=== PATIENT | female | born 1965 | race Caucasian/White ===

== ENCOUNTER 2016-05-08 06:47 | Emergency (ER) | payer MEDICAID ==
[~2016-05-08] VITALS: Ht 162.6 cm; Wt 90.7 kg
[2016-05-08 06:50] VITALS: BP 144/92
--- NOTE | 2016-05-08 06:55 | NUR ---
AMBULATED TO ER BED 5
--- NOTE | 2016-05-08 06:57 | NUR ---
Patient being evaluated by physician at bedside.
[2016-05-08] MEDS ORDERED: [UNRECOGNIZED DRUG - OTHER] OP ONE (07:00)
[2016-05-08] MEDS ORDERED: IBUPROFEN 800 MG TAB PO ONE (07:00)
--- NOTE | 2016-05-08 07:15 | NUR ---
51/F presents to ED for evaluation of right eye pain since this morning 0100. Pt states "It started with my right eye and now my left eye is starting to hurt." Swelling to right eye lid, sclera appears pink, no tearing noted. Denies changes in vision. Patient is AOX4, ambulatory with steady gait. VSS.
[2016-05-08 07:39] VITALS: BP 144/92
--- NOTE | 2016-05-08 07:40 | NUR ---
Patient discharged with v/s stable. Written and verbal after care instructions given and explained. Patient alert, oriented and verbalized understanding of instructions. Ambulatory with steady gait. All questions addressed prior to discharge. ID band removed. Patient advised to follow up with PMD. Rx of motrin and eye drops given. Patient educated on indication of medication including possible reaction and side effects. Opportunity to ask questions provided and answered.
--- NOTE | 2016-05-08 07:40 | NUR ---
Chart checked and completed. The patient's care was reviewed and supervised by Leroy Pena RN.
== END 2016-05-08 07:40 | disposition home or self-care (01) ==
LOC: MED 06:47
DX: H10.9 Unspecified conjunctivitis (principal); J20.8 Acute bronchitis due to other specified organisms; Z88.0 Allergy status to penicillin

== ENCOUNTER 2018-09-22 06:45 | Emergency (ER) | payer SELFPAY ==
[~2018-09-22] VITALS: Ht 162.6 cm; Wt 90.7 kg
--- NOTE | 2018-09-22 06:55 | NUR ---
PT AMBULATED TO BED 11.
[2018-09-22 06:56] VITALS: BP 122/83
--- NOTE | 2018-09-22 07:01 | NUR ---
53 YO F BIB SELF PRESENTS TO ED C/O HIVES THAT STARTED LAST NIGHT. PT HAS ONE HIVE TO BOTH RIGHT AND LEFT UPPER EXTREMETIES. PT ALSO HAS SWELLING TO LEFT EYE. LEFT EYELID APPEARS PUFFY, RED. PT DENIES SOB, DIFFICULTY BREATHING OR SWALLOWING. PT STATES SHE HAS SEASONAL ALLERGIES AND ALLERGY TO PCN. PT STATES SHE TOOK BENADRYL AT 2400 AND IT WAS INEFFECTIVE. SKIN PINK, WARM, DRY. BREATHING EVEN, UNLABORED. VSS. PMH-- GERD
--- NOTE | 2018-09-22 07:06 | NUR ---
REPORT GIVEN TO NGUYEN STOUT.
--- NOTE | 2018-09-22 07:07 | NUR ---
PT AAO X4. FULL CLEAR SPEECH. PERRLA, BRISK 3 MM. L EYE SWOLLEN, BUMP WITH REDNESS TO DEVONTE ARMS. PT DENIES SOB, FEVER, BLURRED VISION. PT HAS STEADY GAIT.
--- NOTE | 2018-09-22 07:26 | NUR ---
DR HOBBS AT BEDSIDE FOR PT EVALUATION
[2018-09-22] MEDS ORDERED: PROMETHAZINE 25 MG/ML VIAL IM ONE (07:30)
[2018-09-22] MEDS ORDERED: FAMOTIDINE 20 MG TAB PO ONE (07:30)
[2018-09-22] MEDS ORDERED: DEXAMETHASONE 10 MG/ML VIAL IM ONE (07:30)
[2018-09-22] MEDS ORDERED: hydrOXYzine HCL 25 MG TAB PO ONE (07:30)
[2018-09-22 07:58] VITALS: BP 118/76
--- NOTE | 2018-09-22 07:58 | NUR ---
Patient discharged with v/s stable. Written and verbal after care instructions given and explained. Patient alert, oriented and verbalized understanding of instructions. Ambulatory with steady gait. All questions addressed prior to discharge. ID band removed. Patient advised to follow up with PMD. Rx of prednisone, atarax given. Patient educated on indication of medication including possible reaction and side effects. Opportunity to ask questions provided and answered.
== END 2018-09-22 07:58 | disposition home or self-care (01) ==
LOC: MED 06:45
DX: T63.481A Toxic effect of venom of other arthropod, accidental (unintentional), initial encounter (principal); K21.9 Gastro-esophageal reflux disease without esophagitis; Z88.0 Allergy status to penicillin; Y92.89 Other specified places as the place of occurrence of the external cause
CPT/HCPCS: 96372; 99283; J1100; J2550

== ENCOUNTER 2019-04-15 05:30 | Emergency (ER) | payer SELFPAY ==
[~2019-04-15] VITALS: Ht 165.1 cm; Wt 90.7 kg
[2019-04-15 05:30] VITALS: BP 141/87
--- NOTE | 2019-04-15 05:30 | NUR ---
TO BED #07 AMBULATORY
--- NOTE | 2019-04-15 05:50 | NUR ---
PT ASSESSMENT COMPLETE. PT LYING SUPINE IN BED. BEDRAIL X1 UP. WILL CONTINUE TO MONITOR.
--- NOTE | 2019-04-15 07:07 | NUR ---
BEDSIDE REPORT GIVEN TO NGUYEN GARCÍA. TRANSFER OF CARE AT THIS TIME.
--- NOTE | 2019-04-15 07:16 | NUR ---
RECEIVED REPORT FROM DEEPAK KIRK
--- NOTE | 2019-04-15 07:16 | NUR ---
Dr. Caldwell is evaluating the patient at bedside.
[2019-04-15 07:56] VITALS: BP 141/87
--- NOTE | 2019-04-15 07:56 | NUR ---
Patient discharged with v/s stable. Written and verbal after care instructions given and explained. Patient alert, oriented and verbalized understanding of instructions. Ambulatory with steady gait. All questions addressed prior to discharge. ID band removed. Patient advised to follow up with PMD. Rx of Prednison 20mg and Motrin 800mg given. Patient educated on indication of medication including possible reaction and side effects. Opportunity to ask questions provided and answered.
== END 2019-04-15 07:56 | disposition home or self-care (01) ==
LOC: MED 05:30
DX: R05 Cough (principal); R07.89 Other chest pain; R06.02 Shortness of breath; K21.9 Gastro-esophageal reflux disease without esophagitis; Z98.890 Other specified postprocedural states; Z88.0 Allergy status to penicillin
CPT/HCPCS: 99283

== ENCOUNTER 2019-10-11 17:57 | Emergency (ER) | payer SELFPAY ==
[~2019-10-11] VITALS: Ht 162.6 cm; Wt 81.6 kg
[2019-10-11 18:15] VITALS: BP 111/80
--- NOTE | 2019-10-11 18:28 | NUR ---
C/O FEVER, COUGH,HEADACHE, BODY ACHE X 3 DAYS. PT HAS COVID TESTED POSITIVE 10/09/19. TEMP 100.7 & TOOK ACETAMINOPHEN 4 HOURS AGO. TEMP 99, P 89, R 20, O2SAT 97%, BP 11/80 AT THIS TIME. MED HX:HITAL HERNIA & SURGERY
[2019-10-11 18:53] VITALS: BP 111/80
--- NOTE | 2019-10-11 18:53 | NUR ---
Patient discharged with v/s stable. Written and verbal after care instructions given and explained. Patient alert, oriented and verbalized understanding of instructions. Ambulatory with steady gait. All questions addressed prior to discharge. ID band removed. Patient advised to follow up with PMD. Rx of AZITHROMYCIN given. Patient educated on indication of medication including possible reaction and side effects. Opportunity to ask questions provided and answered.
== END 2019-10-11 18:53 | disposition home or self-care (01) ==
LOC: MED 17:57
DX: U07.1 COVID-19 (principal)
CPT/HCPCS: 99283

== ENCOUNTER 2019-10-23 09:04 | Emergency (ER) | payer SELFPAY ==
[~2019-10-23] VITALS: Ht 162.6 cm; Wt 90.7 kg
[2019-10-23 09:23] VITALS: BP 119/75
--- NOTE | 2019-10-23 09:28 | NUR ---
C/O SOB X 2 DAYS, COUGH X 2.5 WEEKS. DENIES FEVER.COVID TESTED + 10/08/[address]. TEMP 97.7, P 67, R20, O2SAT 97%, BP 119/75 AT THIS TIME. SEEN HERE 10/11/19 MED HX: HITAL HERNIA
[2019-10-23 11:11] LABS: BASOPHILS # (AUTO) 0.1 K/uL (0.00-0.22); BASOPHILS % (AUTO) 1.3 % (0.0-2.0); EOSINOPHILS # (AUTO) 0.4 K/uL (0-0.4); EOSINOPHILS % (AUTO) 6.6 % (0.0-4.0); HEMATOCRIT 38.4 % (36-48); HEMOGLOBIN 11.9 g/dL (12.0-16.0); LYMPHOCYTES # (AUTO) 1.3 K/uL (2.5-16.5); LYMPHOCYTES % (AUTO) 22.3 % (20.5-51.1); MEAN CORPUSCULAR HEMOGLOBIN 24 pg (27-31); MEAN CORPUSCULAR HGB CONC 31 g/dL (33-37); MONOCYTES # (AUTO) 0.4 K/uL (0.8-1.0); MONOCYTES % (AUTO) 7.8 % (1.7-9.3); NEUTROPHILS # (AUTO) 3.5 K/uL (1.8-7.7); PLATELET COUNT (AUTO) 297 K/uL (140-450); RED BLOOD CELL COUNT(AUTO) 4.99 MIL/uL (4.20-5.40); RED CELL DISTRIBUTION WIDTH 17.6 % (11.6-13.7); WHITE BLOOD COUNT (AUTO) 5.7 K/uL (4.8-10.8)
[2019-10-23 11:34] LABS: ALBUMIN 3.8 g/dL (3.4-5.0); ANION GAP 15.9 (8-16); CARBON DIOXIDE 24.1 mmol/L (21-32); CREATININE 0.7 mg/dL (0.6-1.3); TOTAL BILIRUBIN 0.6 mg/dL (0.0-1.0)
--- NOTE | 2019-10-23 12:40 | NUR ---
COVID SWAB DONE.
--- NOTE | 2019-10-23 12:50 | NUR ---
Patient discharged with v/s stable. Written and verbal after care instructions given and explained. Patient verbalized understanding. Ambulatory with steady gait. All questions addressed prior to discharge. Advised to follow up with PMD.
[2019-10-23 12:51] VITALS: BP 119/75
== END 2019-10-23 12:50 | disposition home or self-care (01) ==
LOC: MED 09:04 → EEVIPCON 09:04 → MED 12:50
DX: R06.02 Shortness of breath (principal); K21.9 Gastro-esophageal reflux disease without esophagitis; Z88.0 Allergy status to penicillin
CPT/HCPCS: 71045; 80053; 83880; 84484; 85025; 93005; 99285; U0003

== ENCOUNTER 2019-11-25 11:29 | Emergency (ER) | payer OTHER, SELFPAY ==
[~2019-11-25] VITALS: Ht 165.1 cm; Wt 103.4 kg
[2019-11-25 11:36] VITALS: BP 143/93
--- NOTE | 2019-11-25 11:40 | NUR ---
Patient ambulated to bed 9. Placed in bed 9 for COVID precautions.
--- NOTE | 2019-11-25 11:48 | NUR ---
PT HAS 2 NEGATIVE COVID 19 POSITIVES SINCE ORIGIAN POSITIVE---COUGH SOB REMAINS AND ANTERIOR CHEST WALL PAIN
--- NOTE | 2019-11-25 12:25 | NUR ---
Dr. Aleman is evaluating the patient at bedside.
[2019-11-25 12:36] VITALS: BP 143/93
--- NOTE | 2019-11-25 12:37 | NUR ---
Patient discharged with v/s stable. Written and verbal after care instructions given and explained. Patient alert, oriented and verbalized understanding of instructions. Ambulatory with steady gait. All questions addressed prior to discharge. ID band removed. Patient advised to follow up with PMD. Rx of DEXAMETHASONE/HYDROXYCHLOROQUINE/AZITHROMYCIN given. Patient educated on indication of medication including possible reaction and side effects. Opportunity to ask questions provided and answered.
== END 2019-11-25 12:31 | disposition home or self-care (01) ==
LOC: MED 11:29
DX: J20.9 Acute bronchitis, unspecified (principal); K21.9 Gastro-esophageal reflux disease without esophagitis; Z88.0 Allergy status to penicillin; Z98.890 Other specified postprocedural states; Z20.828 Contact with and (suspected) exposure to other viral communicable diseases
CPT/HCPCS: 71045; 99283

== ENCOUNTER 2020-07-18 15:21 | Emergency (ER) | payer OTHER ==
[~2020-07-18] VITALS: Ht 165.1 cm; Wt 86.2 kg
--- NOTE | 2020-07-18 15:41 | NUR ---
PT TAKEN TO ER BED 11 FOR BEDSIDE TRIAGE.
[2020-07-18 15:45] VITALS: BP 134/80
--- NOTE | 2020-07-18 15:49 | NUR ---
55 Y/O FEMALE C/O CHEST CONGESTION/SORE-THROAT X2DAYS WITH +CLEAR PHLEGM, DRY NON-PRODUCTIVE COUGH. PT HAS HORSE VOICE. PT DENIES PAIN, DENIES N/V, DENIES FEVER/CHILLS. PT STATES THAT SHE FEELS SOB WHEN AMBULATING OR MOVING AROUND BUT NOT AT REST. CLEAR BREATH SOUNDS THROUGHOUT. PT STATES GRANDSON WAS SICK/COLD X1 WEEK AGO. PT HAS HAS BRONCHITIS AND S/S FEEL SIMILAR. PT TOOK GUAIFENESIN WITH RELIEF. PT IS A/O X4 WITH EVEN AND UNLABORED RESPIRATIONS. PT LAYING IN BED WITH BED IN LOWEST POSITION, BRAKES LOCKED, X1 SIDERAIL UP. PT IN GOWN. PMH: CHRONIC BRONCHITIS ALLERGIES: PCN
--- NOTE | 2020-07-18 16:21 | NUR ---
JABIER CHEW AT BEDSIDE
[2020-07-18] MEDS ORDERED: PRED20TA5 PO (16:42)
[2020-07-18] MEDS ORDERED: ALBU0.0912 IH (16:42)
[2020-07-18] MEDS ORDERED: CETI10SG1 PO (16:42)
[2020-07-18] MEDS ORDERED: PROM118S5 PO (16:42)
--- NOTE | 2020-07-18 16:47 | NUR ---
RAD AT BEDSIDE
[2020-07-18] MEDS ORDERED: fentaNYL citrate 0.05 MG/ML VIAL ONE (16:58)
[2020-07-18] MEDS ORDERED: PROM473S4 PO (17:14)
--- NOTE | 2020-07-18 17:25 | NUR ---
d/c with VSS. d/c education given. opportunity to ask questions given and answered. rx of promethazine, albuterol, prednisone and zyrtec given.
== END 2020-07-18 17:25 | disposition home or self-care (01) ==
LOC: MED 15:21
DX: J20.9 Acute bronchitis, unspecified (principal); K21.9 Gastro-esophageal reflux disease without esophagitis; Z88.0 Allergy status to penicillin; Z79.899 Other long term (current) drug therapy
CPT/HCPCS: 71045; 99283; J3010

== ENCOUNTER 2020-10-17 15:59 | Emergency (ER) | payer OTHER ==
[~2020-10-17] VITALS: Ht 162.6 cm; Wt 86.2 kg
[~2020-10-17 15:59] MED LIST: ALBU0.0912 IH; CETI10SG1 PO; PRED20TA5 PO; PROM473S4 PO
[2020-10-17 16:02] VITALS: BP 154/94
--- NOTE | 2020-10-17 16:42 | NUR ---
pt ambulated to bed 04.
--- NOTE | 2020-10-17 16:50 | NUR ---
55 y/o F BIB self from home with c/c cold-like symptoms x 4 days. Patient A&Ox4, reports wheezing, productive cough/congestion, headache 7/10, and vomiting x 3 episode since 0800 this morning. Patient states testing positive for Covid 10/2019 and states grandson is sick at home. Denies fever/chills, dizziness, SOB, chest pain, abdominal pain, blurry vision. Pt placed into a gown. SpO2 98% on room air. Lung sounds CTA; RR even/unlabored. Bed locked in lowest position, side rails x 1, call light in reach. PMH: asthma, bronchitis, hiatal hernia Allergies: PCN, seasonal allergies Meds: Robatussin
[2020-10-17] MEDS ORDERED: ALBUTEROL HFA MDI 90 MCG/ACTUATION 8 GM INH ONE (17:10)
--- NOTE | 2020-10-17 17:27 | NUR ---
MDI THERAPY AND RESPIRATORY DRUG GIVEN ORDERED EDUCATION PROVIDED ON THE PROPER USE OF MDI WITH CHAMBER
--- NOTE | 2020-10-17 17:30 | NUR ---
RT at bedside
[2020-10-17] MEDS ORDERED: PRED20TA5 PO (17:43)
[2020-10-17] MEDS ORDERED: ALBU0.0912 INH (17:43)
[2020-10-17] MEDS ORDERED: PROM473S5 PO (18:00)
[2020-10-17 18:14] VITALS: BP 154/94
--- NOTE | 2020-10-17 18:14 | NUR ---
Patient discharged with v/s stable. Written and verbal after care instructions given and explained. Patient alert, oriented and verbalized understanding of instructions. Ambulatory with steady gait. All questions addressed prior to discharge. ID band removed. Patient advised to follow up with PMD. Rx of Prednisone, Albuterol Sulfate, Promethazine Dm given. Patient educated on indication of medication including possible reaction and side effects. Opportunity to ask questions provided and answered.
== END 2020-10-17 18:14 | disposition home or self-care (01) ==
LOC: EEVIPCON 15:59 → MED 15:59
DX: J45.901 Unspecified asthma with (acute) exacerbation (principal); K21.9 Gastro-esophageal reflux disease without esophagitis; Z79.899 Other long term (current) drug therapy; Z88.0 Allergy status to penicillin
CPT/HCPCS: 71045; 94664; 99283

== ENCOUNTER 2020-11-20 17:59 | Emergency (ER) | payer OTHER ==
[~2020-11-20] VITALS: Ht 162.6 cm; Wt 110.2 kg
[~2020-11-20 17:59] MED LIST changes: +ALBU0.0912 INH; +PROM473S5 PO
[2020-11-20 18:06] VITALS: BP 142/98
[2020-11-20] MEDS ORDERED: IBUPROFEN 400 MG TAB PO ONE (18:15)
--- NOTE | 2020-11-20 18:16 | NUR ---
JABIER OWENS WITH PT FOR FURTHER ASSESSMENT.
--- NOTE | 2020-11-20 18:26 | NUR ---
PT AMBULATED TO ER BED 9.
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
--- NOTE | 2020-11-20 18:38 | NUR ---
PROGRAM ARRANGER AT PT BEDSIDE.
--- NOTE | 2020-11-20 18:54 | NUR ---
JABIER OWENS AT PT BEDSIDE FOR PROCEDURE.
[2020-11-20] MEDS ORDERED: LIDOCAINE MPF 1% 5 ML ONE (18:55)
[2020-11-20] MEDS ORDERED: LIDOCAINE MPF 1% 10 MG/ML VIAL INJ ONE (19:05)
[2020-11-20] MEDS ORDERED: BACI1PAC6 TP (19:13)
[2020-11-20] MEDS ORDERED: IBUP-1842 PO (19:13)
--- NOTE | 2020-11-20 19:18 | NUR ---
GAVE REPORT TO GNUYEN MEDINA. TRANSFER OF CARE AT THIS TIME.
--- NOTE | 2020-11-20 19:28 | NUR ---
Patient discharged with v/s stable. Written and verbal after care instructions given and explained. Patient alert, oriented and verbalized understanding of instructions. Ambulatory with steady gait. All questions addressed prior to discharge. ID band removed. Patient advised to follow up with PMD. Rx of BACITRACIC OINT AND MOTRIN given. Patient educated on indication of medication including possible reaction and side effects. Opportunity to ask questions provided and answered.
== END 2020-11-20 19:28 | disposition home or self-care (01) ==
LOC: MED 17:59
DX: S61.210A Laceration without foreign body of right index finger without damage to nail, initial encounter (principal); J45.909 Unspecified asthma, uncomplicated; K21.9 Gastro-esophageal reflux disease without esophagitis; Z88.0 Allergy status to penicillin; Z79.899 Other long term (current) drug therapy; Z98.890 Other specified postprocedural states; W22.8XXA Striking against or struck by other objects, initial encounter; Y93.89 Activity, other specified; Y92.89 Other specified places as the place of occurrence of the external cause; Y99.8 Other external cause status
CPT/HCPCS: 12002; 73140; 90471; 90715; 99283; J2001

== ENCOUNTER 2020-11-28 08:17 | Emergency (ER) | payer OTHER ==
[~2020-11-28] VITALS: Ht 162.6 cm; Wt 108.4 kg
[~2020-11-28 08:17] MED LIST changes: +BACI1PAC6 TP; +IBUP-1842 PO
[2020-11-28 08:20] VITALS: BP 139/80
--- NOTE | 2020-11-28 09:00 | NUR ---
Patient assessed, treated, and discharged with v/s stable. Written and verbal after care instructions about suture removal given and explained. Patient verbalized understanding. Ambulatory with steady gait. All questions addressed prior to discharge. Advised to follow up with PMD.
[2020-11-28 09:01] VITALS: BP 139/80
== END 2020-11-28 09:00 | disposition home or self-care (01) ==
LOC: MED 08:17
DX: Z48.02 Encounter for removal of sutures (principal); X58.XXXD Exposure to other specified factors, subsequent encounter; J45.909 Unspecified asthma, uncomplicated; K21.9 Gastro-esophageal reflux disease without esophagitis; Z98.890 Other specified postprocedural states; Z79.1 Long term (current) use of non-steroidal anti-inflammatories (NSAID); Z79.899 Other long term (current) drug therapy; Z79.2 Long term (current) use of antibiotics; Z79.51 Long term (current) use of inhaled steroids; Z88.0 Allergy status to penicillin
CPT/HCPCS: 99281

== ENCOUNTER 2021-03-10 14:51 | Emergency (ER) | payer OTHER ==
[~2021-03-10] VITALS: Ht 165.1 cm; Wt 90.7 kg
[2021-03-10 14:58] VITALS: BP 154/102
--- NOTE | 2021-03-10 15:04 | NUR ---
PT AMB TO BED 2.
--- NOTE | 2021-03-10 15:30 | NUR ---
55/F BIB SELF WITH C/O RIGHT UPPER BACK PAIN RADIATING TO RIGHT SHOULDER SINCE THIS MORNING. PATIENT DENIES INJURY OR TRAUMA, STATES PAIN IS A 10/10 SHARP/BURNING PAIN, REPORTS "IT FEELS LIKE SPASMS." PATIENT DENIES TAKING ANYTHING FOR PAIN PRIOR TO ARRIVAL TO ED, ALSO C/O SOB SINCE THIS MORNING, STATES IT WORSENS UPON AMBULATION, ALSO REPORTS INTERMITTENT EPISODES OF N/V/D. DENIES URINARY SYMPTOMS, CP, SOB, FEVER OR CHILLS.
--- NOTE | 2021-03-10 15:31 | NUR ---
DR GTZ AT BEDSIDE EVALUATING PT
[2021-03-10] MEDS ORDERED: KETOROLAC 60 MG/2 ML VIAL IM ONE (15:35)
[2021-03-10] MEDS ORDERED: CYCLOBENZAPRINE 10 MG TAB PO ONE (15:35)
[2021-03-10] MEDS ORDERED: CYCL-711 PO (15:37)
[2021-03-10] MEDS ORDERED: ACET-10509 PO (15:37)
[2021-03-10] MEDS ORDERED: IBUP-2213 PO (15:37)
[2021-03-10 16:43] VITALS: BP 127/92
--- NOTE | 2021-03-10 16:43 | NUR ---
Patient discharged with v/s stable. Written and verbal after care instructions ABOUT MUSCLE STRAIN given and explained. Patient alert, oriented and verbalized understanding of instructions. Ambulatory with steady gait. All questions addressed prior to discharge. ID band removed. Patient advised to follow up with PMD. Rx of FLEXERIL, IBUPROFEN 600MG, AND TYLENOL EXTRA STRENGTH given. Patient educated on indication of medication including possible reaction and side effects. Opportunity to ask questions provided and answered.
--- NOTE | 2021-03-10 16:44 | NUR ---
The patient's care was reviewed and supervised by Jacklyn Vizcarra RN.
== END 2021-03-10 16:43 | disposition home or self-care (01) ==
LOC: MED 14:51
DX: S39.012A Strain of muscle, fascia and tendon of lower back, initial encounter (principal); S29.012A Strain of muscle and tendon of back wall of thorax, initial encounter; M62.830 Muscle spasm of back; J45.909 Unspecified asthma, uncomplicated; K21.9 Gastro-esophageal reflux disease without esophagitis; Z79.899 Other long term (current) drug therapy; Z79.1 Long term (current) use of non-steroidal anti-inflammatories (NSAID); Z79.2 Long term (current) use of antibiotics; Z79.51 Long term (current) use of inhaled steroids; Z88.0 Allergy status to penicillin; X58.XXXA Exposure to other specified factors, initial encounter; Y92.89 Other specified places as the place of occurrence of the external cause; Y93.89 Activity, other specified; Y99.8 Other external cause status
CPT/HCPCS: 81002; 81025; 96372; 99283; J1885

== ENCOUNTER 2021-06-23 16:15 | Emergency (ER) | payer OTHER ==
[~2021-06-23] VITALS: Ht 165.1 cm; Wt 108.1 kg
[~2021-06-23 16:15] MED LIST changes: +ACET-10509 PO; +CYCL-711 PO; +IBUP-2213 PO
[2021-06-23 16:30] VITALS: BP_SYST 80
--- NOTE | 2021-06-23 16:41 | NUR ---
PT AMB TO BED 9.
--- NOTE | 2021-06-23 16:50 | NUR ---
PATIENT PRESENTS TO ED WITH C/O N/V/D, MID ABDOMINAL PAIN, CABELLO, PRODUCTIVE COUGH, CHILLS, FEVER SINCE TUESDAY. PATIENT STATED SHE TOOK EXCEDRIN WITH NO RELIEF. TEMP 97.7 AT THIS TIME. SKIN IS PINK/WARM/DRY; AAOX4 WITH EVEN AND STEADY GAIT; LUNGS CLEAR BL; PT DENIES SOB; VSS; PATIENT POSITIONED FOR COMFORT; HOB ELEVATED; BEDRAILS UP X2; BED DOWN. ER MD MADE AWARE OF PT STATUS. ALLERGY: PCN MED HX: ASTHMA, HIATAL HERNIA
[2021-06-23] MEDS ORDERED: NACL 0.9% 1,000 ML IV ONE (18:50)
[2021-06-23] MEDS ORDERED: diphenhydrAMINE 50 MG/ML VIAL IVP ONE (18:50)
[2021-06-23] MEDS ORDERED: PROCHLORPERAZINE 10 MG/2 ML VIAL IVP ONE (18:50)
--- NOTE | 2021-06-23 19:31 | NUR ---
Pt report given to NGUYEN JAGEER. Transfer of care at this time.
[2021-06-23 20:05] LABS: BASOPHILS % (AUTO) 0.4 % (0.0-2.0); EOSINOPHILS % (AUTO) 0.1 % (0.0-4.0); HEMATOCRIT 32.8 % (36-48); HEMOGLOBIN 10.2 g/dL (12.0-16.0); LYMPHOCYTES # (AUTO) 0.5 K/uL (2.5-16.5); LYMPHOCYTES % (AUTO) 5.7 % (20.5-51.1); MEAN CORPUSCULAR HEMOGLOBIN 24 pg (27-31); MEAN CORPUSCULAR HGB CONC 31 g/dL (33-37); MEAN CORPUSCULAR VOLUME 76.5 fL (80-94); MONOCYTES # (AUTO) 0.5 K/uL (0.8-1.0); MONOCYTES % (AUTO) 5.5 % (1.7-9.3); NEUTROPHILS # (AUTO) 8.5 K/uL (1.8-7.7); NEUTROPHILS % (AUTO) 88.3 % (42.2-75.2); PLATELET COUNT (AUTO) 337 K/uL (140-450); RED BLOOD CELL COUNT(AUTO) 4.29 MIL/uL (4.20-5.40); RED CELL DISTRIBUTION WIDTH 17.2 % (11.6-13.7); WHITE BLOOD COUNT (AUTO) 9.6 K/uL (4.8-10.8)
[2021-06-23 20:24] LABS: ALBUMIN 3.4 g/dL (3.4-5.0); ANION GAP 11.4 (8-16); CARBON DIOXIDE 27.3 mmol/L (21-32); CREATININE 0.7 mg/dL (0.6-1.3); POTASSIUM 3.7 mmol/L (3.5-5.1); TOTAL BILIRUBIN 0.8 mg/dL (0.0-1.0)
--- NOTE | 2021-06-23 21:05 | NUR ---
DANTE WALKED OVER TO LAB
[2021-06-23] MEDS ORDERED: KETOROLAC 30 MG/ML VIAL IM ONE (22:20)
[2021-06-23 22:31] VITALS: BP 137/71
--- NOTE | 2021-06-23 22:32 | NUR ---
PATIENT CLEARED FOR DISCHARGE AT THIS TIME. ADVISED TO FOLLOW UP WITH PCP AND RETURN IF CONDITION WORSENS. NO OTHER COMPLAINRTS OR CONCERNS FOLLOWING DISHCARGE TEACHING
== END 2021-06-23 22:31 | disposition home or self-care (01) ==
LOC: MED 16:15
DX: B34.9 Viral infection, unspecified (principal); A04.9 Bacterial intestinal infection, unspecified; J45.909 Unspecified asthma, uncomplicated; K21.9 Gastro-esophageal reflux disease without esophagitis; Z88.0 Allergy status to penicillin; Z20.822 Contact with and (suspected) exposure to COVID-19
CPT/HCPCS: 36415; 70450; 80053; 83690; 85025; 87426; 96361; 96372; 96374; 96375; 99285; J0780; J1200; J1885; J7030

== ENCOUNTER 2022-11-18 21:08 | Inpatient (IN) | payer OTHER ==
[~2022-11-18] VITALS: Ht 162.6 cm; Wt 98.4 kg
[~2022-11-18 21:08] MED LIST changes: +BACI-418 TP; -BACI1PAC6 TP
[2022-11-18 21:19] VITALS: BP 100/57; PULSE 90; RESP 17; TEMP 99.7; O2SAT 96
[2022-11-18] MEDS ORDERED: ONDANSETRON 4 MG/2 ML VIAL IVP ONE (21:40)
[2022-11-18] MEDS ORDERED: NACL 0.9% 1,000 ML IV SCH (21:40)
[2022-11-18 22:34] LABS: BASOPHILS # (AUTO) 0.1 K/uL (0.00-0.22); BASOPHILS % (AUTO) 0.9 % (0.0-2.0); EOSINOPHILS % (AUTO) 0.2 % (0.0-4.0); LYMPHOCYTES # (AUTO) 0.8 K/uL (2.5-16.5); LYMPHOCYTES % (AUTO) 7.3 % (20.5-51.1); MEAN CORPUSCULAR HEMOGLOBIN 19 pg (27-31); MEAN CORPUSCULAR HGB CONC 29 g/dL (33-37); MEAN CORPUSCULAR VOLUME 63.3 fL (80-94); MONOCYTES # (AUTO) 0.6 K/uL (0.8-1.0); NEUTROPHILS # (AUTO) 9.1 K/uL (1.8-7.7); NEUTROPHILS % (AUTO) 85.6 % (42.2-75.2); PLATELET COUNT (AUTO) 298 K/uL (140-450); RED BLOOD CELL COUNT(AUTO) 3.32 MIL/uL (4.20-5.40); WHITE BLOOD COUNT (AUTO) 10.7 K/uL (4.8-10.8)
[2022-11-18 22:39] LABS: HEMOGLOBIN 6.2 g/dL (12.0-16.0)
[2022-11-18 22:42] LABS: CHLORIDE 104 mmol/L (98-107); POTASSIUM 3.2 mmol/L (3.5-5.1); SODIUM SERUM 138 mmol/L (136-145)
[2022-11-18 22:52] LABS: ALANINE AMINOTRANSFERASE 27 U/L (12-78); ALBUMIN 3.3 g/dL (3.4-5.0); ANION GAP 13.2 (8-16); ASPARTATE AMINOTRANSFERASE 26 U/L (15-37); CALCIUM 8.1 mg/dL (8.5-10.1); CREATININE 0.8 mg/dL (0.6-1.3); GFR ARICAN-AMERICAN 95 mL/min (>90); GFR NON ARICAN-AMERICAN 79 mL/min (>90); GLUCOSE 112 mg/dL (74-106); LIPASE 52 U/L (73-393); UREA NITROGEN, BLOOD 13 mg/dL (7-18)
[2022-11-18 23:13] LABS: ALKALINE PHOSPHATASE 90 U/L (50-136); TOTAL PROTEIN, SERUM 6.5 g/dL (6.4-8.2)
[2022-11-18 23:46] LABS: APPEARANCE,URINE CLEAR (CLEAR); BILIRUBIN,URINE NEGATIVE (NEGATIVE); BLOOD, URINE 3+ (NEGATIVE); COLOR,URINE YELLOW (YELLOW); LEUKOCYTE ESTERASE ,URINE TRACE (NEGATIVE); NITRITE, URINE NEGATIVE (NEGATIVE); PROTEIN,URINE 1+ (NEGATIVE); UGLUCOSE NEGATIVE (NEGATIVE); UROBILINOGEN,URINE 0.2 EU/dL (0.2 - 1)
[2022-11-18 23:47] LABS: FLU A ANTIGEN negative (NEGATIVE); FLU B ANTIGEN NEGATIVE (NEGATIVE)
[2022-11-18 23:51] LABS: BACTERIA,URINE 10-30 (MOD) /HPF (None Seen); MUCUS,URINE 1+ /LPF (None Seen); RBC,URINE 11-20 (MOD) /HPF (0-5); SQUAMOUS EPITHELIAL CELL,UR 0-3 (FEW) /LPF (0-3 (FEW))
[2022-11-19] VITALS (9 sets, daily range): BP systolic 103–111; BP diastolic 49–63; PULSE 68–82; RESP 18–20; TEMP 98.1–98.7; O2SAT 92–100
[2022-11-19] MEDS ORDERED: NACL 0.9% 1,000 ML IV ONE
[2022-11-19] MEDS ORDERED: cefTRIAXone 1,000 MG VIAL ONE (00:44)
[2022-11-19 00:47] LABS: LACTIC ACID 0.7 mmol/L (0.4-2.0)
[2022-11-19 00:48] LABS: INR 1.05 (0.8-1.2); PARTIAL THROMBOPLASTIN TIME 29.2 secs (22-35.6)
[2022-11-19] MEDS ORDERED: DOCUSATE SODIUM 100 MG GELCAP PO PRN (01:20)
[2022-11-19] MEDS ORDERED: ZOLPIDEM 5 MG TAB PO PRN (01:20)
[2022-11-19] MEDS ORDERED: ONDANSETRON 4 MG/2 ML VIAL IM/IVP PRN (01:20)
[2022-11-19] MEDS ORDERED: guaiFENesin DM 200/20 MG-10 ML 10 ML UDC PO PRN (01:20)
[2022-11-19] MEDS: NACL 0.9% 1,000 ML IV SCH ×2 (02:00→17:05)
[2022-11-19] MEDS ORDERED: ACETAMINOPHEN 325 MG TAB PO ONE (02:25)
[2022-11-19] MEDS: POTASSIUM CHLORIDE 10 MEQ TABER PO PRN ×2 (05:10→19:30)
[2022-11-19] MEDS: HYDROcodone/APAP 7.5/325 MG 1 TAB PO PRN ×3 (05:10→19:02)
[2022-11-19 06:34] LABS: BASOPHILS # (AUTO) 0.1 K/uL (0.00-0.22); BASOPHILS % (AUTO) 0.8 % (0.0-2.0); HEMATOCRIT 23.3 % (36-48); LYMPHOCYTES # (AUTO) 0.8 K/uL (2.5-16.5); MEAN CORPUSCULAR HEMOGLOBIN 20 pg (27-31); MEAN CORPUSCULAR HGB CONC 30 g/dL (33-37); MONOCYTES # (AUTO) 0.7 K/uL (0.8-1.0); MONOCYTES % (AUTO) 6.4 % (1.7-9.3); NEUTROPHILS # (AUTO) 8.7 K/uL (1.8-7.7); NEUTROPHILS % (AUTO) 84.8 % (42.2-75.2); PLATELET COUNT (AUTO) 306 K/uL (140-450); RED BLOOD CELL COUNT(AUTO) 3.48 MIL/uL (4.20-5.40); RED CELL DISTRIBUTION WIDTH 22.7 % (11.6-13.7); WHITE BLOOD COUNT (AUTO) 10.2 K/uL (4.8-10.8)
[2022-11-19 06:45] LABS: ALBUMIN 2.9 g/dL (3.4-5.0); CALCIUM 7.7 mg/dL (8.5-10.1); CARBON DIOXIDE 22.4 mmol/L (21-32); CREATININE 0.7 mg/dL (0.6-1.3); POTASSIUM 3.4 mmol/L (3.5-5.1); TOTAL BILIRUBIN 0.7 mg/dL (0.0-1.0); TOTAL PROTEIN, SERUM 6.1 g/dL (6.4-8.2)
[2022-11-19] MEDS ORDERED: CYCLOBENZAPRINE 10 MG TAB PO PRN (07:30)
[2022-11-19] MEDS ORDERED: ALBUTEROL SULFATE/IPRATROPIU 3 ML SOL IH PRN ×2 (07:30→07:35)
[2022-11-19] MEDS ORDERED: CETIRIZINE HCL PO SCH (09:00)
[2022-11-19] MEDS: DOCUSATE SODIUM 250 MG GELCAP PO SCH ×2 (11:19→20:23)
[2022-11-19] MEDS: PANTOPRAZOLE 40 MG TABEC PO SCH (11:20)
[2022-11-19] MEDS: LORATADINE 10 MG TAB PO SCH (11:20)
[2022-11-19] MEDS: FERROUS SULFATE 325 MG TABEC PO SCH ×3 (11:20→17:07)
[2022-11-20] VITALS (9 sets, daily range): BP systolic 97–121; BP diastolic 54–78; PULSE 72–83; RESP 18; TEMP 97.1–98.7; O2SAT 92–97
[2022-11-20] MEDS: ACETAMINOPHEN 325 MG TAB PO PRN ×2 (04:39→17:47)
[2022-11-20 06:14] LABS: BASOPHILS # (AUTO) 0.1 K/uL (0.00-0.22); EOSINOPHILS # (AUTO) 0.2 K/uL (0-0.4); HEMOGLOBIN 7.4 g/dL (12.0-16.0); LYMPHOCYTES # (AUTO) 0.8 K/uL (2.5-16.5)
[2022-11-20 06:30] LABS: EOSINOPHILS % (AUTO) 2.7 % (0.0-4.0); LYMPHOCYTES % (AUTO) 10.4 % (20.5-51.1); MEAN CORPUSCULAR HEMOGLOBIN 20 pg (27-31); MEAN CORPUSCULAR HGB CONC 30 g/dL (33-37); MEAN CORPUSCULAR VOLUME 67.5 fL (80-94); MONOCYTES # (AUTO) 0.7 K/uL (0.8-1.0); MONOCYTES % (AUTO) 9.8 % (1.7-9.3); NEUTROPHILS # (AUTO) 5.5 K/uL (1.8-7.7); NEUTROPHILS % (AUTO) 76.1 % (42.2-75.2); PLATELET COUNT (AUTO) 271 K/uL (140-450); RED BLOOD CELL COUNT(AUTO) 3.71 MIL/uL (4.20-5.40); RED CELL DISTRIBUTION WIDTH 22.9 % (11.6-13.7); WHITE BLOOD COUNT (AUTO) 7.3 K/uL (4.8-10.8)
[2022-11-20 06:38] LABS: ALBUMIN 2.9 g/dL (3.4-5.0); ANION GAP 13.3 (8-16); CALCIUM 8.2 mg/dL (8.5-10.1); CARBON DIOXIDE 24.6 mmol/L (21-32); CREATININE 0.7 mg/dL (0.6-1.3); POTASSIUM 3.9 mmol/L (3.5-5.1); TOTAL BILIRUBIN 0.5 mg/dL (0.0-1.0); TOTAL PROTEIN, SERUM 6.1 g/dL (6.4-8.2)
[2022-11-20 07:18] LABS: ANISOCYTOSIS 3+; HYPOCHROMASIA 1+
[2022-11-20 07:19] LABS: OVALOCYTES 1+; SCHISTOCYTES 1+; TEAR DROP CELLS 1+
[2022-11-20 08:08] LABS: FERRITIN 20 ng/mL (15-150); FOLIC ACID > 20.00 ng/mL (>3.0)
[2022-11-20] MEDS: FERROUS SULFATE 325 MG TABEC PO SCH ×3 (08:24→17:48)
[2022-11-20] MEDS: PANTOPRAZOLE 40 MG TABEC PO SCH (08:24)
[2022-11-20] MEDS: DOCUSATE SODIUM 250 MG GELCAP PO SCH ×2 (08:24→20:40)
[2022-11-20] MEDS: LORATADINE 10 MG TAB PO SCH (08:24)
[2022-11-20] MEDS: HYDROcodone/APAP 7.5/325 MG 1 TAB PO PRN (10:23)
[2022-11-20] MEDS ORDERED: ASCO500T95 PO (11:50)
[2022-11-20] MEDS ORDERED: FER325 PO (11:50)
[2022-11-20] MEDS ORDERED: DOCU250C7 PO (11:50)
[2022-11-20] MEDS: NACL 0.9% 1,000 ML IV SCH (14:41)
[2022-11-20] MEDS ORDERED: SUMAtriptan succinate 50 MG TAB PO ONE (19:45)
[2022-11-21] VITALS (7 sets, daily range): BP systolic 112–131; BP diastolic 51–71; PULSE 18–82; RESP 18; TEMP 97.3–98.1; O2SAT 91–98
[2022-11-21] MEDS: NACL 0.9% 1,000 ML IV SCH ×2 (03:20→08:33)
[2022-11-21 07:01] LABS: BASOPHILS % (AUTO) 0.8 % (0.0-2.0); EOSINOPHILS # (AUTO) 0.4 K/uL (0-0.4); EOSINOPHILS % (AUTO) 7.2 % (0.0-4.0); HEMATOCRIT 23.2 % (36-48); LYMPHOCYTES # (AUTO) 0.9 K/uL (2.5-16.5); LYMPHOCYTES % (AUTO) 16.9 % (20.5-51.1); MEAN CORPUSCULAR HEMOGLOBIN 20 pg (27-31); MEAN CORPUSCULAR HGB CONC 30 g/dL (33-37); MEAN CORPUSCULAR VOLUME 67.2 fL (80-94); MONOCYTES # (AUTO) 0.5 K/uL (0.8-1.0); MONOCYTES % (AUTO) 9.8 % (1.7-9.3); NEUTROPHILS # (AUTO) 3.5 K/uL (1.8-7.7); NEUTROPHILS % (AUTO) 65.3 % (42.2-75.2); PLATELET COUNT (AUTO) 264 K/uL (140-450); RED BLOOD CELL COUNT(AUTO) 3.45 MIL/uL (4.20-5.40); RED CELL DISTRIBUTION WIDTH 22.1 % (11.6-13.7); WHITE BLOOD COUNT (AUTO) 5.4 K/uL (4.8-10.8)
[2022-11-21 07:17] LABS: HEMOGLOBIN 6.9 g/dL (12.0-16.0)
[2022-11-21 07:21] LABS: ALBUMIN 2.6 g/dL (3.4-5.0); ANION GAP 10.9 (8-16); CALCIUM 7.9 mg/dL (8.5-10.1); CARBON DIOXIDE 27.8 mmol/L (21-32); CREATININE 0.7 mg/dL (0.6-1.3); POTASSIUM 3.7 mmol/L (3.5-5.1); TOTAL BILIRUBIN 0.4 mg/dL (0.0-1.0); TOTAL PROTEIN, SERUM 5.7 g/dL (6.4-8.2)
[2022-11-21 07:28] LABS: HYPOCHROMASIA 1+
[2022-11-21 07:29] LABS: ANISOCYTOSIS 1+
[2022-11-21] MEDS: DOCUSATE SODIUM 250 MG GELCAP PO SCH (08:24)
[2022-11-21] MEDS: LORATADINE 10 MG TAB PO SCH (08:25)
[2022-11-21] MEDS: FERROUS SULFATE 325 MG TABEC PO SCH ×2 (08:25→12:13)
[2022-11-21] MEDS: PANTOPRAZOLE 40 MG TABEC PO SCH (08:26)
[2022-11-21] MEDS: ACETAMINOPHEN 325 MG TAB PO PRN (08:32)
[2022-11-21] MEDS ORDERED: ASCORBIC ACID 500 MG TAB PO SCH (09:00)
[2022-11-21] MEDS ORDERED: SUMAtriptan succinate 50 MG TAB PO SCH (10:28)
[2022-11-21] MEDS ORDERED: IRON SUCROSE COMPLEX 100 MG/5 ML VIAL IVP SCH (14:00)
== END 2022-11-21 17:38 | disposition home or self-care (01) | DRG 720 ==
LOC: MED 21:08 → MTU 11-19 01:23
PROVIDERS: ADMIT Student in an Organized Health Care Education/Training Program; ATTEND Student in an Organized Health Care Education/Training Program
PROC: 30233N1 Transfusion of Nonautologous Red Blood Cells into Peripheral Vein, Percutaneous Approach (ICD-10-PCS; principal; 2022-11-19)
DX: A41.9 Sepsis, unspecified organism (principal); E44.1 Mild protein-calorie malnutrition; K92.2 Gastrointestinal hemorrhage, unspecified; D50.9 Iron deficiency anemia, unspecified; J45.909 Unspecified asthma, uncomplicated; E87.6 Hypokalemia; K59.00 Constipation, unspecified; Z20.822 Contact with and (suspected) exposure to COVID-19; N39.0 Urinary tract infection, site not specified; E86.0 Dehydration; G43.909 Migraine, unspecified, not intractable, without status migrainosus; Z91.199 Patient's noncompliance with other medical treatment and regimen due to unspecified reason; Z88.0 Allergy status to penicillin; Z79.899 Other long term (current) drug therapy; Z91.148 Patient's other noncompliance with medication regimen for other reason; Z68.37 Body mass index [BMI] 37.0-37.9, adult
CPT/HCPCS: 36415; 36430; 71045; 80053; 81001; 82272; 82607; 82728; 82746; 83540; 83605; 83690; 84484; 85025; 85610; 85730; 86886; 86900; 86901; 86920; 87040; 87081; 87086; 96361; 96365; 96375; 99291; J0696; J1756; J2405; J7060; P9016; Q0092